=== PATIENT | female | born 1950 | race Caucasian/White ===

== ENCOUNTER → 2017-01-04 | Outpatient (CLI) | payer MEDICARE, OTHER ==
[~2017-01-04] MED LIST: BENAZEPRIL10 MG PO; ENJUVIA1.25 MG PO; EPA FISH OIL1000 MG PO; NORVASC5 MG PO; [UNRECOGNIZED DRUG - OTHER]
== END ==
LOC: COL.RAD 13:19
DX: R10.31 Right lower quadrant pain (principal)
CPT/HCPCS: Q9967

== ENCOUNTER → 2017-05-15 | Outpatient (CLI) | payer MEDICARE | LOC: MC.RAD 09:18 | DX: Z12.31 Encounter for screening mammogram for malignant neoplasm of breast (principal) ==

== ENCOUNTER → 2018-02-28 | Outpatient (CLI) | payer MEDICARE | LOC: COL.RAD 10:17 | DX: E04.2 Nontoxic multinodular goiter (principal) ==

== ENCOUNTER → 2018-04-22 | Outpatient (CLI) | payer MEDICARE ==
[~2018-04-22] VITALS: Ht 160 cm; Wt 63.2 kg
[~2018-04-22] MED LIST changes: +B-121000 MCG PO; +CALCIUM 600 PLU1 TAB PO; +PRINIVIL40 MG PO; +ZANTAC 7575 MG PO
[2018-04-22 08:48] VITALS: BP 127/87; PULSE 74
[2018-04-22 09:25] VITALS: BP 155/87; PULSE 78
== END ==
LOC: COL.RAD 04-03 08:30
DX: M48.061 Spinal stenosis, lumbar region without neurogenic claudication (principal); Z79.899 Other long term (current) drug therapy
CPT/HCPCS: J3301

== ENCOUNTER → 2018-05-07 | Outpatient (CLI) | payer MEDICARE ==
[~2018-05-07] VITALS: Ht 160 cm; Wt 62.2 kg
[2018-05-07 09:40] VITALS: BP 98/56; PULSE 73
[2018-05-07 11:05] VITALS: BP 128/70; PULSE 68
== END ==
LOC: COL.RAD 09:21
DX: M48.061 Spinal stenosis, lumbar region without neurogenic claudication (principal)
CPT/HCPCS: J3301

== ENCOUNTER → 2018-06-18 | Outpatient (CLI) | payer MEDICARE | LOC: MC.RAD 06-12 13:00 | DX: Z12.31 Encounter for screening mammogram for malignant neoplasm of breast (principal) ==

== ENCOUNTER → 2018-11-08 | Outpatient (CLI) | payer MEDICARE | LOC: COL.RAD 07:57 | DX: M46.92 Unspecified inflammatory spondylopathy, cervical region (principal); M50.222 Other cervical disc displacement at C5-C6 level; M48.02 Spinal stenosis, cervical region ==

== ENCOUNTER → 2019-03-04 | Outpatient (CLI) | payer MEDICARE | LOC: COL.RAD 12:45 | DX: E04.2 Nontoxic multinodular goiter (principal) ==

== ENCOUNTER → 2019-06-23 | Outpatient (CLI) | payer MEDICARE | LOC: MC.RAD 08:41 | DX: Z12.31 Encounter for screening mammogram for malignant neoplasm of breast (principal) ==

== ENCOUNTER → 2020-07-19 | Outpatient (CLI) | payer MEDICARE | LOC: MC.RAD 06-30 09:30 | DX: Z12.31 Encounter for screening mammogram for malignant neoplasm of breast (principal) ==

== ENCOUNTER → 2021-04-22 | Outpatient (CLI) | payer MEDICARE | LOC: COL.RAD 04-20 14:15 | DX: E04.2 Nontoxic multinodular goiter (principal) ==

== ENCOUNTER → 2021-07-21 | Outpatient (CLI) | payer MEDICARE | LOC: MC.RAD 09:03 | DX: Z12.31 Encounter for screening mammogram for malignant neoplasm of breast (principal) ==